=== PATIENT | female | born 1935 | race Caucasian/White ===

== ENCOUNTER 2022-06-08 12:04 | Emergency (ER) | payer MEDICARE ==
[~2022-06-08] VITALS: Ht 154.9 cm; Wt 45.5 kg
[~2022-06-08 12:04] MED LIST: AMLO5TAB16 PO; ASPI-1071 PO; ATOR20TA66 PO; CHLO25TA11 PO; MECL-226 PO; PANT40TA54 PO
[2022-06-08 12:45] LABS: BASOPHILS # (AUTO) 0.1 X10'3 (0-0.2); BASOPHILS % (AUTO) 1.6 % (0-1); EOSINOPHILS # (AUTO) 0.1 X10'3 (0-0.9); HEMATOCRIT 43.7 % (35.0-45.0); HEMOGLOBIN 14.4 g/dl (12.0-16.0); LYMPHOCYTES # (AUTO) 0.9 X10'3 (1.1-4.8); LYMPHOCYTES % (AUTO) 13.4 % (21-51); MEAN CORPUSCULAR HEMOGLOBIN 26.1 PG (27.0-31.0); MEAN CORPUSCULAR VOLUME 79.2 FL (78-98); MEAN PLATELET VOLUME 9.9 FL (7.4-10.4); MONOCYTES # (AUTO) 0.6 X10'3 (0-0.9); MONOCYTES % (AUTO) 8.2 % (2-12); NEUTROPHILS # (AUTO) 5.2 X10'3 (1.8-7.7); NEUTROPHILS % (AUTO) 75.8 % (42-75); PLATELET COUNT 389 X10'3 (140-440); RED BLOOD COUNT 5.52 X10'6 (4.20-5.60); RED CELL DISTRIBUTION WIDTH 15.4 % (11.5-14.5); WHITE BLOOD COUNT 6.8 X10'3 (4.5-11.0)
[2022-06-08 12:58] LABS: APTT 34 SECONDS (22-32)
[2022-06-08 13:02] LABS: ALANINE AMINOTRANSFERASE 29 U/L (12-78); ALBUMIN 4.3 G/DL (3.4-5.0); ALBUMIN/GLOBULIN RATIO 1.3 (1.1-1.5); ALKALINE PHOSPHATASE 149 IU/L (46-116); ANION GAP 8 (8-16); ASPARTATE AMINO TRANSFERASE 34 U/L (10-37); BILIRUBIN,TOTAL 0.6 MG/DL (0.1-1.0); BLOOD UREA NITROGEN 26 MG/DL (7-18); BUN/CREATININE RATIO 33.8 (6.6-38.0); CALCIUM 9.5 MG/DL (8.5-10.1); CHLORIDE 98 MMOL/L (99-107); CREATININE 0.77 MG/DL (0.40-0.90); GLUCOSE 127 MG/DL (70-104); POTASSIUM 3.9 MMOL/L (3.5-5.1); SODIUM 137 MMOL/L (135-145); TOTAL CARBON DIOXIDE 31.2 MMOL/L (24-32); TOTAL PROTEIN 7.6 G/DL (6.4-8.2); eGFR 71 ML/MIN
[2022-06-08] MEDS ORDERED: CHLO25TA10 PO (15:59)
[2022-06-08] MEDS ORDERED: aspirin 81mg tab.chew PO ONE (16:00)
[2022-06-08 16:16] VITALS: BP 168/75
== END 2022-06-08 16:17 | disposition home or self-care (01) ==
LOC: ER 12:05
DX: G45.9 Transient cerebral ischemic attack, unspecified (principal); I10 Essential (primary) hypertension; Z88.5 Allergy status to narcotic agent
CPT/HCPCS: 36415; 70450; 71045; 80053; 84484; 85025; 85610; 85730; 93005; 99285

== ENCOUNTER 2022-09-22 18:19 | Emergency (ER) | payer MEDICARE ==
[~2022-09-22] VITALS: Ht 154.9 cm; Wt 53.6 kg
[~2022-09-22 18:19] MED LIST changes: +CHLO25TA10 PO
[2022-09-22 19:06] LABS: HEMOGLOBIN 13.6 g/dl (12.0-16.0); LYMPHOCYTES # (AUTO) 0.8 X10'3 (1.1-4.8); MEAN CORPUSCULAR HEMOGLOBIN 26.4 PG (27.0-31.0); MONOCYTES # (AUTO) 0.5 X10'3 (0-0.9); WHITE BLOOD COUNT 8.9 X10'3 (4.5-11.0)
[2022-09-22 19:08] LABS: BASOPHILS # (AUTO) 0.1 X10'3 (0-0.2); BASOPHILS % (AUTO) 0.9 % (0-1); EOSINOPHILS # (AUTO) 0.1 X10'3 (0-0.9); EOSINOPHILS % (AUTO) 0.6 % (0-6); HEMATOCRIT 41.2 % (35.0-45.0); LYMPHOCYTES % (AUTO) 8.9 % (21-51); MEAN CORPUSCULAR VOLUME 79.8 FL (78-98); MEAN PLATELET VOLUME 10.1 FL (7.4-10.4); MONOCYTES % (AUTO) 6.1 % (2-12); NEUTROPHILS # (AUTO) 7.4 X10'3 (1.8-7.7); NEUTROPHILS % (AUTO) 83.5 % (42-75); PLATELET COUNT 345 X10'3 (140-440); RED BLOOD COUNT 5.16 X10'6 (4.20-5.60)
[2022-09-22 19:25] LABS: ALANINE AMINOTRANSFERASE 35 U/L (12-78); ALBUMIN 4.3 G/DL (3.4-5.0); ALBUMIN/GLOBULIN RATIO 1.3 (1.1-1.5); ALKALINE PHOSPHATASE 152 IU/L (46-116); ANION GAP 13 (8-16); ASPARTATE AMINO TRANSFERASE 39 U/L (10-37); BILIRUBIN,TOTAL 0.5 MG/DL (0.1-1.0); BLOOD UREA NITROGEN 36 MG/DL (7-18); BUN/CREATININE RATIO 34.3 (6.6-38.0); CALCIUM 9.6 MG/DL (8.5-10.1); CHLORIDE 96 MMOL/L (99-107); CREATININE 1.05 MG/DL (0.40-0.90); GLUCOSE 137 MG/DL (70-104); SODIUM 135 MMOL/L (135-145); TOTAL CARBON DIOXIDE 26.3 MMOL/L (24-32); TOTAL PROTEIN 7.5 G/DL (6.4-8.2); eGFR 50 ML/MIN
[2022-09-22 19:34] LABS: POTASSIUM 3.2 MMOL/L (3.5-5.1)
--- NOTE | 2022-09-22 19:55 | NUR ---
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 However the patient says this feels different and she can't explain it.
[2022-09-22 20:06] LABS: PLATELET ESTIMATE NORMAL; TOTAL CELLS COUNTED 100
[2022-09-22 20:13] LABS: ANISOCYTOSIS 1+; BURR CELLS 1+; MICROCYTOSIS 1+
[2022-09-22 20:14] LABS: LARGE PLATELETS MODERATE; SCHISTOCYTES FEW; TARGET CELLS FEW
--- NOTE | 2022-09-22 21:51 | NUR ---
Patient to CT
--- NOTE | 2022-09-22 21:57 | NUR ---
BACK FROM CT
[2022-09-22] MEDS ORDERED: POTASSIUM BICARB 20meq eff tab 20 MEQ TABLET.EFF PO STA (22:04)
[2022-09-22 22:55] VITALS: BP 141/63
== END 2022-09-23 01:14 | disposition home or self-care (01) ==
LOC: ER 18:19
DX: R42 Dizziness and giddiness (principal); E87.6 Hypokalemia; Z86.73 Personal history of transient ischemic attack (TIA), and cerebral infarction without residual deficits; Z88.5 Allergy status to narcotic agent; W19.XXXA Unspecified fall, initial encounter; Y93.89 Activity, other specified; Y92.89 Other specified places as the place of occurrence of the external cause; Y99.8 Other external cause status
CPT/HCPCS: 36415; 70450; 71045; 72125; 80053; 83880; 84484; 85007; 85025; 93005; 99285

== ENCOUNTER 2023-03-30 13:03 | Inpatient (IN) | payer MEDICARE ==
[~2023-03-30] VITALS: Ht 154.9 cm; Wt 44.0 kg
[2023-03-30 13:28] LABS: BASOPHILS # (AUTO) 0.1 X10'3 (0-0.2); BASOPHILS % (AUTO) 0.8 % (0-1); EOSINOPHILS # (AUTO) 0.1 X10'3 (0-0.9); MEAN PLATELET VOLUME 9.7 FL (7.4-10.4); NEUTROPHILS # (AUTO) 4.1 X10'3 (1.8-7.7); WHITE BLOOD COUNT 6.8 X10'3 (4.5-11.0)
[2023-03-30 13:29] LABS: HEMATOCRIT 39.8 % (35.0-45.0); LYMPHOCYTES # (AUTO) 1.7 X10'3 (1.1-4.8); LYMPHOCYTES % (AUTO) 25.1 % (21-51); MEAN CORPUSCULAR HEMOGLOBIN 24.7 PG (27.0-31.0); MEAN CORPUSCULAR HGB CONC 32.6 g/dL (33.0-36.5); MEAN CORPUSCULAR VOLUME 75.9 FL (78-98); MONOCYTES # (AUTO) 0.8 X10'3 (0-0.9); MONOCYTES % (AUTO) 12.3 % (2-12); NEUTROPHILS % (AUTO) 60.8 % (42-75); PLATELET COUNT 356 X10'3 (140-440); RED BLOOD COUNT 5.24 X10'6 (4.20-5.60); RED CELL DISTRIBUTION WIDTH 17.7 % (11.5-14.5)
[2023-03-30] MEDS ORDERED: aspirin 325mg tablet PO ONE (13:30)
[2023-03-30 13:36] LABS: APTT 35 SECONDS (22-32); PROTHROMBIN TIME 10.9 SECONDS (9.0-12.0)
[2023-03-30 13:38] LABS: ALANINE AMINOTRANSFERASE 22 U/L (12-78); ALBUMIN 3.7 G/DL (3.4-5.0); ALBUMIN/GLOBULIN RATIO 1.2 (1.1-1.5); ALKALINE PHOSPHATASE 145 IU/L (46-116); ANION GAP 9 (8-16); ASPARTATE AMINO TRANSFERASE 21 U/L (10-37); BILIRUBIN,TOTAL 0.5 MG/DL (0.1-1.0); BLOOD UREA NITROGEN 24 MG/DL (7-18); BUN/CREATININE RATIO 27.3 (10.0-20.0); CALCIUM 8.9 MG/DL (8.5-10.1); CHLORIDE 95 MMOL/L (99-107); CREATININE 0.88 MG/DL (0.40-0.90); GLUCOSE 167 MG/DL (70-104); POTASSIUM 3.5 MMOL/L (3.5-5.1); SODIUM 132 MMOL/L (135-145); TOTAL CARBON DIOXIDE 27.9 MMOL/L (24-32); TOTAL PROTEIN 6.9 G/DL (6.4-8.2); eCRCL 31 ML/MIN; eGFR 61 ML/MIN
[2023-03-30 13:45] LABS: PRO BRAIN NATRIURETIC PEPTIDE 578 PG/ML (0-450)
--- NOTE | 2023-03-30 14:03 | NUR ---
HOSPITALIST CALLED 'S CELL REGARDING ADMIT FOR BED 1 @2006
[2023-03-30] MEDS ORDERED: ASPI-611 PO (14:10)
[2023-03-30] MEDS ORDERED: AMLO5TAB PO (14:10)
[2023-03-30] MEDS ORDERED: ATOR20TA PO (14:10)
[2023-03-30] MEDS ORDERED: CHLO25TA10 PO (14:10)
[2023-03-30] MEDS ORDERED: CARV12.549 PO (14:13)
[2023-03-30] MEDS ORDERED: PANT-47 PO (14:14)
[2023-03-30 14:40] LABS: LIPASE 183 U/L (73-393)
[2023-03-30] MEDS ORDERED: mag hydrox/Alum hydrox/simeth 30ml oral suspension PO PRN (15:30)
[2023-03-30] MEDS ORDERED: potassium Cl 20 mEq SR tablet PO PRN (15:30)
[2023-03-30] MEDS ORDERED: magnesium 4gm in 100ml NS 100 ML IV PRN (15:30)
[2023-03-30] MEDS ORDERED: ondansetron/PF 4mg/2ml inj IV PRN (15:30)
[2023-03-30] MEDS ORDERED: acetaminophen 325mg tablet PO PRN (15:30)
[2023-03-30] MEDS ORDERED: normal saline 500ml IV soln 500 ML IV ONE (15:30)
[2023-03-30] MEDS ORDERED: potassium Cl 40MEQ/1/2NS 520ml 520 ML IV PRN (15:30)
[2023-03-30] MEDS ORDERED: iohexol 350MG/ML 100ml bottle IV ONE (15:48)
[2023-03-30 19:20] VITALS: BP 144/69; PULSE 61; RESP 15; TEMP 97.5; O2SAT 94
[2023-03-30] MEDS: K and/or MAG REPLACEMENT MC SCH (20:00)
[2023-03-30] MEDS: docusate sod 100mg capsule PO SCH (20:00)
[2023-03-30 22:00] VITALS: BP 137/66; PULSE 63; RESP 14; TEMP 97.6; O2SAT 98
[2023-03-31 02:00] VITALS: BP 136/64; PULSE 52; RESP 15; TEMP 98.3; O2SAT 97
[2023-03-31 06:29] LABS: BASOPHILS % (AUTO) 0.4 % (0-1); EOSINOPHILS % (AUTO) 0.8 % (0-6); HEMATOCRIT 39.4 % (35.0-45.0); HEMOGLOBIN 12.8 g/dl (12.0-16.0); LYMPHOCYTES # (AUTO) 1.2 X10'3 (1.1-4.8); LYMPHOCYTES % (AUTO) 18.3 % (21-51); MEAN CORPUSCULAR HEMOGLOBIN 24.6 PG (27.0-31.0); MEAN CORPUSCULAR HGB CONC 32.4 g/dL (33.0-36.5); MEAN PLATELET VOLUME 9.5 FL (7.4-10.4); MONOCYTES # (AUTO) 0.8 X10'3 (0-0.9); MONOCYTES % (AUTO) 11.6 % (2-12); NEUTROPHILS # (AUTO) 4.5 X10'3 (1.8-7.7); NEUTROPHILS % (AUTO) 68.9 % (42-75); PLATELET COUNT 342 X10'3 (140-440); RED BLOOD COUNT 5.18 X10'6 (4.20-5.60); RED CELL DISTRIBUTION WIDTH 17.7 % (11.5-14.5); WHITE BLOOD COUNT 6.5 X10'3 (4.5-11.0)
--- NOTE | 2023-03-31 06:40 | NUR ---
Patient in room ORTH[facility] 4015. I have received report from Rebeka RN and had the opportunity to ask questions and assume patient care.
[2023-03-31 06:43] LABS: ALANINE AMINOTRANSFERASE 22 U/L (12-78); ALBUMIN 3.3 G/DL (3.4-5.0); ALBUMIN/GLOBULIN RATIO 1.1 (1.1-1.5); ALKALINE PHOSPHATASE 134 IU/L (46-116); ANION GAP 7 (8-16); ASPARTATE AMINO TRANSFERASE 20 U/L (10-37); BILIRUBIN,TOTAL 0.5 MG/DL (0.1-1.0); BLOOD UREA NITROGEN 19 MG/DL (7-18); BUN/CREATININE RATIO 23.8 (10.0-20.0); CALCIUM 8.4 MG/DL (8.5-10.1); CHLORIDE 95 MMOL/L (99-107); GLUCOSE 93 MG/DL (70-104); MAGNESIUM 1.8 MG/DL (1.5-2.4); SODIUM 132 MMOL/L (135-145); TOTAL CARBON DIOXIDE 30.2 MMOL/L (24-32); TOTAL PROTEIN 6.2 G/DL (6.4-8.2); eCRCL 34 ML/MIN; eGFR 68 ML/MIN
[2023-03-31 06:45] LABS: POTASSIUM 2.8 MMOL/L (3.5-5.1)
[2023-03-31 06:51] VITALS: BP 151/68; PULSE 57; RESP 16; TEMP 97.4; O2SAT 97
[2023-03-31] MEDS ORDERED: pantoprazole 40mg Tablet.DR PO SCH (08:00)
[2023-03-31] MEDS ORDERED: atorvastatin 20mg tablet PO SCH (08:00)
[2023-03-31] MEDS ORDERED: aspirin 81mg tab.chew PO SCH (08:00)
[2023-03-31] MEDS ORDERED: clopidogrel 75mg tablet PO SCH (08:00)
[2023-03-31] MEDS: K and/or MAG REPLACEMENT MC SCH (08:00)
[2023-03-31] MEDS: docusate sod 100mg capsule PO SCH (09:18)
[2023-03-31] MEDS: potassium Cl 20 mEq SR tablet PO PRN ×2 (09:19→15:15)
[2023-03-31 10:00] VITALS: BP 154/75; PULSE 60; RESP 16; TEMP 97.8; O2SAT 98
--- NOTE | 2023-03-31 12:34 | NUR ---
patient able to answer questions but does become confused as conversation progresses. Anxious to go home. Refusing still MRI. DR Gee aware. Report given to michelle BRIDGES
--- NOTE | 2023-03-31 12:35 | NUR ---
Patient in room ORTHO 4015B. I have received report from YULIANA LONG and had the opportunity to ask questions and assume patient care.
[2023-03-31] MEDS ORDERED: POTA-207 PO (16:21)
[2023-03-31] MEDS ORDERED: CLOP75TA34 PO (16:21)
--- NOTE | 2023-03-31 17:40 | NUR ---
PATIENT STABLE AND APPROPRIATE FOR DISCHARGE, IV AND TELE REMOVED, EDUCATION GIVEN, ALL BELONGINGS SENT WITH PATIENT, NEW MEDS E-SCRIPTED TO PREFERRED PHARMACY, PATIENT WALKED WITH FAMILY TO CAR WHERE [id number] WILL TAKE PATIENT HOME
== END 2023-03-31 17:40 | disposition home or self-care (01) | DRG 69 ==
LOC: ER 13:03 → ED HOLD 15:34 → EDBEDREQ 17:45 → ORTHO 4S 18:00
PROVIDERS: ADMIT Family Medicine; ATTEND Family Medicine
PROC: B3251ZZ Computerized Tomography (CT Scan) of Bilateral Common Carotid Arteries using Low Osmolar Contrast (ICD-10-PCS; principal; 2023-03-30)
PROC: B32G1ZZ Computerized Tomography (CT Scan) of Bilateral Vertebral Arteries using Low Osmolar Contrast (ICD-10-PCS; 2023-03-30)
PROC: B32R1ZZ Computerized Tomography (CT Scan) of Intracranial Arteries using Low Osmolar Contrast (ICD-10-PCS; 2023-03-30)
PROC: B3281ZZ Computerized Tomography (CT Scan) of Bilateral Internal Carotid Arteries using Low Osmolar Contrast (ICD-10-PCS; 2023-03-30)
DX: G45.9 Transient cerebral ischemic attack, unspecified (principal); G93.41 Metabolic encephalopathy; Z66 Do not resuscitate; E78.5 Hyperlipidemia, unspecified; E86.0 Dehydration; I10 Essential (primary) hypertension; E87.6 Hypokalemia; K21.9 Gastro-esophageal reflux disease without esophagitis; Z96.651 Presence of right artificial knee joint; Z79.02 Long term (current) use of antithrombotics/antiplatelets; Z86.73 Personal history of transient ischemic attack (TIA), and cerebral infarction without residual deficits; Z88.5 Allergy status to narcotic agent; Z79.899 Other long term (current) drug therapy
CPT/HCPCS: 36415; 70450; 70496; 70498; 71045; 80053; 83690; 83735; 83880; 84132; 84484; 85025; 85610; 85730; 87081; 92508; 92616; 93005; 93306; 93880; 99285; G0378; J3490; J7030; J7040; Q9967

== ENCOUNTER 2023-05-16 17:46 | Inpatient (IN) | payer MEDICARE ==
[~2023-05-16] VITALS: Ht 154.9 cm; Wt 43.8 kg
[~2023-05-16 17:46] MED LIST changes: +AMLO5TAB PO; -AMLO5TAB16 PO; -ASPI-1071 PO; +ASPI-611 PO; +ATOR20TA PO; -ATOR20TA66 PO; +CARV12.549 PO; -CHLO25TA11 PO; +CLOP75TA34 PO; -MECL-226 PO; +PANT-47 PO; -PANT40TA54 PO; +POTA-207 PO
[2023-05-16] MEDS ORDERED: normal saline 1000ml 1,000 ML IV ONE (18:15)
[2023-05-16] MEDS ORDERED: normal saline 1000ML IV soln IVB ONE (18:15)
[2023-05-16] MEDS ORDERED: iohexol 350MG/ML 100ml bottle IV ONE (18:16)
[2023-05-16] MEDS ORDERED: dextrose 5%-lactated ringers 1,000 ML IV SCH (18:20)
[2023-05-16 18:23] LABS: BASOPHILS # (AUTO) 0.1 X10'3 (0-0.2); BASOPHILS % (AUTO) 1.2 % (0-1); EOSINOPHILS # (AUTO) 0.1 X10'3 (0-0.9); HEMOGLOBIN 13.7 g/dl (12.0-16.0); LYMPHOCYTES # (AUTO) 1.7 X10'3 (1.1-4.8); NEUTROPHILS # (AUTO) 4.2 X10'3 (1.8-7.7); RED CELL DISTRIBUTION WIDTH 16.8 % (11.5-14.5); WHITE BLOOD COUNT 7.2 X10'3 (4.5-11.0)
[2023-05-16 18:24] LABS: EOSINOPHILS % (AUTO) 1.5 % (0-6); HEMATOCRIT 41.5 % (35.0-45.0); LYMPHOCYTES % (AUTO) 24.1 % (21-51); MEAN CORPUSCULAR HEMOGLOBIN 25.5 PG (27.0-31.0); MEAN CORPUSCULAR VOLUME 77.4 FL (78-98); MEAN PLATELET VOLUME 9.1 FL (7.4-10.4); MONOCYTES % (AUTO) 14.4 % (2-12); NEUTROPHILS % (AUTO) 58.8 % (42-75); PLATELET COUNT 387 X10'3 (140-440); RED BLOOD COUNT 5.36 X10'6 (4.20-5.60)
[2023-05-16 18:40] LABS: ALANINE AMINOTRANSFERASE 27 U/L (12-78); ALBUMIN 4.2 G/DL (3.4-5.0); ALBUMIN/GLOBULIN RATIO 1.3 (1.1-1.5); ALKALINE PHOSPHATASE 126 IU/L (46-116); ANION GAP 9 (8-16); ASPARTATE AMINO TRANSFERASE 25 U/L (10-37); BILIRUBIN,TOTAL 0.4 MG/DL (0.1-1.0); BLOOD UREA NITROGEN 31 MG/DL (7-18); BUN/CREATININE RATIO 32.3 (10.0-20.0); CALCIUM 9.3 MG/DL (8.5-10.1); CHLORIDE 97 MMOL/L (99-107); CREATININE 0.96 MG/DL (0.40-0.90); GLUCOSE 98 MG/DL (70-104); POTASSIUM 3.5 MMOL/L (3.5-5.1); SODIUM 132 MMOL/L (135-145); TOTAL CARBON DIOXIDE 26.4 MMOL/L (24-32); TOTAL PROTEIN 7.4 G/DL (6.4-8.2); eCRCL 29 ML/MIN; eGFR 55 ML/MIN
[2023-05-16 18:47] LABS: PRO BRAIN NATRIURETIC PEPTIDE 376 PG/ML (0-450)
[2023-05-16 19:10] LABS: LARGE PLATELETS FEW; PLATELET ESTIMATE NORMAL
[2023-05-16 19:11] LABS: ANISOCYTOSIS 1+; MICROCYTOSIS 1+
[2023-05-16 19:12] LABS: ELLIPTOCYTES 1+; TARGET CELLS FEW
[2023-05-16 19:13] LABS: POIKILOCYTOSIS FEW
[2023-05-16 19:21] LABS: APTT 32 SECONDS (22-32); INR 1.1 INR; PROTHROMBIN TIME 11.4 SECONDS (9.0-12.0)
[2023-05-16] MEDS ORDERED: acetaminophen 650mg rectal suppository RC PRN (20:10)
[2023-05-16] MEDS ORDERED: potassium Cl 40MEQ/1/2NS 520ml 520 ML IV PRN (20:10)
[2023-05-16] MEDS ORDERED: ondansetron/PF 4mg/2ml inj IV PRN (20:10)
[2023-05-16] MEDS ORDERED: magnesium 2GM in 50ml NS 50 ML IV PRN (20:10)
[2023-05-16] MEDS ORDERED: magnesium Cl slow-release 64mg tablet PO PRN (20:10)
[2023-05-16] MEDS ORDERED: normal saline 1000ml 1,000 ML IV SCH (20:10)
[2023-05-16] MEDS ORDERED: magnesium 4gm in 100ml NS 100 ML IV PRN (20:10)
[2023-05-16] MEDS ORDERED: PERFLUTREN PROTEIN-A MICROSPHR (Optison) 0.22 MG/ML 3ML VIAL IV ONE (20:10)
[2023-05-16] MEDS ORDERED: potassium Cl 20 mEq SR tablet PO PRN ×2 (20:10)
[2023-05-16 20:42] LABS: BILIRUBIN,URINE NEGATIVE (Neg); CLARITY,URINE CLEAR (Clear); GLUCOSE, URINE NEGATIVE (Neg); KETONES,URINE NEGATIVE (Neg); LEUKOCYTE ESTERASE ,URINE NEGATIVE (Neg); NITRITES, URINE NEGATIVE (Neg); OCCULT BLOOD,URINE TRACE-INTACT (Neg); PH,URINE 6.5 (4.8-8.0); PROTEIN,URINE NEGATIVE (Neg); UROBILINOGEN,URINE 0.2 E.U/dL (0.2-1.0)
[2023-05-16 20:44] LABS: COLOR,URINE STRAW (Yellow); UA COLLECTION TYPE CLN CATCH MIDSTREAM
[2023-05-16 20:53] LABS: BACTERIA,URINE FEW /HPF (Neg); MUCUS STRANDS NONE SEEN /LPF (Neg); RBC,URINE 0-2 /HPF (0-2); SQUAMOUS EPITHELIAL CELL,UR FEW /LPF (FEW); WBC,URINE 0-4 /HPF (0-4)
--- NOTE | 2023-05-16 21:23 | NUR ---
PT POOR HISTORIAN, UNABLE TO COMPLETE MED REC.
--- NOTE | 2023-05-16 21:43 | NUR ---
PT REFUSING PLANNED MRI, MD ACOSTA AWARE.
[2023-05-16] MEDS ORDERED: clopidogrel 75mg tablet PO ONE (22:55)
[2023-05-17 05:37] LABS: MEAN CORPUSCULAR HGB CONC 33.1 g/dL (33.0-36.5)
[2023-05-17 05:39] LABS: ALBUMIN 3.5 G/DL (3.4-5.0); ANION GAP 7 (8-16); BASOPHILS # (AUTO) 0.1 X10'3 (0-0.2); BASOPHILS % (AUTO) 0.9 % (0-1); BLOOD UREA NITROGEN 21 MG/DL (7-18); BUN/CREATININE RATIO 27.3 (10.0-20.0); CALCIUM 8.9 MG/DL (8.5-10.1); CHLORIDE 99 MMOL/L (99-107); CREATININE 0.77 MG/DL (0.40-0.90); EOSINOPHILS # (AUTO) 0.1 X10'3 (0-0.9); EOSINOPHILS % (AUTO) 0.9 % (0-6); GLUCOSE 90 MG/DL (70-104); HEMATOCRIT 39.3 % (35.0-45.0); LYMPHOCYTES # (AUTO) 1.1 X10'3 (1.1-4.8); LYMPHOCYTES % (AUTO) 17.4 % (21-51); MEAN CORPUSCULAR HEMOGLOBIN 25.4 PG (27.0-31.0); MEAN CORPUSCULAR VOLUME 76.8 FL (78-98); MEAN PLATELET VOLUME 9.3 FL (7.4-10.4); MONOCYTES # (AUTO) 0.9 X10'3 (0-0.9); MONOCYTES % (AUTO) 14.5 % (2-12); NEUTROPHILS # (AUTO) 4.3 X10'3 (1.8-7.7); NEUTROPHILS % (AUTO) 66.3 % (42-75); PLATELET COUNT 320 X10'3 (140-440); RED BLOOD COUNT 5.12 X10'6 (4.20-5.60); RED CELL DISTRIBUTION WIDTH 16.9 % (11.5-14.5); SODIUM 133 MMOL/L (135-145); WHITE BLOOD COUNT 6.5 X10'3 (4.5-11.0); eCRCL 36 ML/MIN; eGFR 71 ML/MIN
[2023-05-17 05:41] LABS: POTASSIUM 3.1 MMOL/L (3.5-5.1)
[2023-05-17 07:20] VITALS: BP 143/74; PULSE 60; RESP 18; O2SAT 98
[2023-05-17] MEDS ORDERED: K and/or MAG REPLACEMENT MC SCH (08:00)
--- NOTE | 2023-05-17 09:08 | NUR ---
pt on hospital bed. Resting comfortably in bed. Pt passed swallow screen, cl liq diet started per hospitalist.
[2023-05-17] MEDS ORDERED: aspirin 81mg, enteric-coated 1 TAB TABLET.DR PO ONE (09:20)
[2023-05-17] MEDS ORDERED: clopidogrel 75mg tablet PO ONE (09:20)
[2023-05-17] MEDS ORDERED: atorvastatin 20mg tablet PO ONE (09:25)
--- NOTE | 2023-05-17 11:12 | NUR ---
Pt still refusing MRI after being offered ativan for anxiety and vertigo meds. Pt states she had 1 MRI in the past and experienced vertigo and anxiety.
[2023-05-17 11:14] LABS: CHOL/HDL RATIO 2.4 (0.00-4.99); CHOLESTEROL 145 MG/DL (0-200); HDL CHOLESTEROL 61 MG/DL (35-60); LDL CHOLESTEROL 71 MG/DL (50-100); TRIGLYCERIDES 55 MG/DL (20-135)
--- NOTE | 2023-05-17 12:15 | NUR ---
In to assess patient having some word searching issues but is anxious about MRI and wanting to go home. Ambulated entire [place] of ED with out difficulty just standby assist. Patients speech became more fluent once she was told she did not have to have the MRI and would be discharged.She states she has been having word finding issues over the last 8 months or so. Speech was clear and fluent after education given about going home and medications for home.
--- NOTE | 2023-05-17 13:52 | NUR ---
This RN has attempted to call son, Magdi x3 and left voicemails x2.
[2023-05-18] MEDS ORDERED: clopidogrel 75mg tablet PO SCH (08:00)
[2023-05-18] MEDS ORDERED: aspirin 81mg, enteric-coated 1 TAB TABLET.DR PO SCH (08:00)
[2023-05-18] MEDS ORDERED: pantoprazole 40mg Tablet.DR PO SCH (08:00)
== END 2023-05-17 16:13 | disposition home or self-care (01) | DRG 64 ==
LOC: ER 17:52 → UNDOADMIN 20:13 → ED HOLD 20:13 → EDBEDREQTM 05-17 11:36 → EDBEDREQDT 05-17 11:36 → EDBEDREQSVC 05-17 11:36
PROVIDERS: ADMIT Family Medicine; ATTEND Family Medicine
DX: I63.9 Cerebral infarction, unspecified (principal); G93.41 Metabolic encephalopathy; N17.0 Acute kidney failure with tubular necrosis; G45.9 Transient cerebral ischemic attack, unspecified; I69.354 Hemiplegia and hemiparesis following cerebral infarction affecting left non-dominant side; R47.01 Aphasia; I10 Essential (primary) hypertension; K21.9 Gastro-esophageal reflux disease without esophagitis; E78.5 Hyperlipidemia, unspecified; E87.6 Hypokalemia; Z66 Do not resuscitate; Z79.82 Long term (current) use of aspirin; Z79.899 Other long term (current) drug therapy; Z79.01 Long term (current) use of anticoagulants; Z88.5 Allergy status to narcotic agent
CPT/HCPCS: 36415; 70450; 70496; 70498; 80048; 80053; 80061; 81001; 82948; 83735; 83880; 84484; 85025; 85610; 85730; 93005; 99285; G0378; J3490; J7030; J7121; Q9967

== ENCOUNTER 2023-06-18 14:14 | Outpatient (CLI) | payer MEDICARE | END 2023-06-18 23:59 | disposition home or self-care (01) | LOC: RAD 14:14 | PROVIDERS: ATTEND Registered Nurse | DX: K76.89 Other specified diseases of liver (principal); R10.13 Epigastric pain; K59.00 Constipation, unspecified | CPT/HCPCS: 76700 ==

== ENCOUNTER 2025-04-08 11:36 | Emergency (ER) | payer MEDICARE, MEDICAID ==
[~2025-04-08] VITALS: Ht 157.5 cm; Wt 46.0 kg
[2025-04-08 12:04] VITALS: TEMP 97.8
[2025-04-08 12:55] VITALS: BP_DIAS 78
--- NOTE | 2025-04-08 14:13 | Physician Documentation ---
History of Present Illness ~ Chief Complaint: Neck pain Stated Complaint: THROAT SWELLING Time Seen by MD: 13:40 Mode of Arrival: POV, Ambulatory HPI 89-year-old female with a history of dementia presents with her friend for bilateral neck pain and swelling this morning. She says sometimes it is tender to palpation of both sides of her neck. She is able to drink water but she did not have breakfast this morning as she was worried it may hurt to swallow. She denies any injury or trauma to her neck. She mentioned a couple of weeks ago that she had this pain which resolved spontaneously. Airway patent, speaking in full sentences. Medication Reconciliation Allergies: Coded Allergies: Opioids - Morphine Analogues (Verified Allergy, Unknown, 06/08/22) Scheduled Amlodipine Besylate (Amlodipine Besylate), 1 TABLET PO DAILY, (Reported) Aspirin (Aspir 81), 1 TAB PO DAILY, (Reported) Atorvastatin Calcium (Lipitor), 1 TAB PO DAILY, (Reported) Carvedilol (Carvedilol), 1 TAB PO BID, (Reported) Chlorthalidone (Chlorthalidone), 1 TAB PO DAILY, (Reported) Clopidogrel Bisulfate (Clopidogrel), 75 MG PO DAILY Pantoprazole Sodium (PROTONIX tablet), 1 TAB PO DAILY, (Reported) Potassium Chloride* (K-Dur*), 2 TAB PO DAILY Past Medical History Past Medical History: CVA/TIA/Stroke, Vertigo, Hypertension Past Surgical History: noncontributory Patient History: Patient reports no known family medical history. Alcohol Use: None Drug Use: none Lives with: Family Lives In: Home Review of Systems All Other Systems at this time: Reviewed and Negative Physical Exam Vital Signs: RN Vital Signs have been reviewed: Yes, Temperature: 97.8, Source: Temporal, Heart Rate: 69, Respiratory Rate: 16, BP: 172/78, Pulse Oximetry: 96, Weight: 46.000 Oxygen Flow Rate: 0 Pulse Oximetry Reflects: adequate oxygenation Physical Exam General: Alert, no apparent distress. HEENT: PERRL, EOMI, no injection, moist mucous membranes. Bilateral TM clear. Posterior pharynx clear. Neck: Full range of motion. Tenderness to palpation along area of bilateral cervical lymph nodes, lymph nodes are nonpalpable. Respiratory: Lungs clear, no respiratory distress. Chest: No accessory muscle use. Cardiovascular: Regular rate and rhythm, no murmurs. Gastrointestinal: Soft, nontender, nondistended. Bowels sounds present. Extremities: Normal range of motion, no deformity. Neurologic: Oriented x4. Psychiatric: Normal mood and affect. Skin: Normal color, warm and dry. No edema, no ecchymosis. Progress Results/Orders Reviewed/noted all lab results: Yes Results/Orders Orders - DONNA STYLES Ct Neck Soft Tissues (04/08/25 14:11) Completed Orders - DONNA STYLESP Ondansetron Disint. Tablet (Zofran Odt T (04/08/25 14:15) Ct Neck Soft Tissues (04/08/25 14:11) Medications Received in ER Medications (Trade) Dose Ordered Sig/Deepti Route PRN Reason Start Time Stop Time Status Last Admin Dose Admin (Zofran ODT tablet) 4 mg ONCE ONCE PO 04/08/25 14:15 04/08/25 14:16 DC 04/08/25 14:16 4 MG Vital Signs 04/08/25 04/08/25 04/08/25 04/08/25 12:04 12:55 12:56 14:17 Temp 97.8 Pulse 70 69 65 Resp 16 16 16 16 B/P (MAP) 166/98 172/78 (109) 90/ Pulse Ox 98 96 99 O2 Flow Rate 0 0 0 EKG/XRAY/CT/US/VASC/MRI CT : Impression CT neck soft tissues as interpreted by me: Thyroid gland within normal limits, moderate to severe degenerative changes of the cervical spine, circumferential wall thickening of the proximal esophagus. Medical Decision Making Additional info obtained from: old records, family, sports teacher Findings 89-year-old female with bottle Tylenol neck pain that was worse this morning. She has mentioned it a few times over the past few weeks which normally self resolves. She denies any recent illness or upper respiratory infection. She has not taken any medication for her symptoms prior to arrival. She was able to drink water well in front of me. Her physical exam revealed tenderness to palpation along wear her cervical lymph nodes would be but the lymph nodes themselves were nonpalpable. She originally did not want to lay flat for CT scan or neck ultrasound. She states that she has a history of vertigo and when she lays down it gets much worse and she gets very nauseous. I gave her a dose of Zofran and then she was agreeable to complete the CT scan. CT scan shows: Wall thickening of the proximal esophagus concerning for neoplasm. I spoke with her and her friend regarding this as they can follow up on outpatient basis for further imaging and treatment plan. I discussed that she can use Tylenol or ibuprofen for pain relief. Her daughter is coming to pick her up and I will explain all of this to her daughter as well. We discussed follow up and return instructions. Departure Disposition: 01 HOME / SELF CARE / HOMELESS Impression: Primary Impression: Neck pain Condition: Stable Discharge Instructions: General Discharge Instructions Additional Instructions: Please follow up with her primary care provider within the next week. Return back here for any new or worsening symptoms. Your CT scan shows: Wall thickening of the proximal esophagus concerning for neoplasm. I have provided you a copy of your results to give to your primary care provider. This will need further workup through your primary care provider such as additional imaging and a possible referral to Oncology. You can use Tylenol and/or ib uprofen for pain relief at home. Referrals: NO PRIMARY CARE PROVIDER (PCP) Education Educated: Patient, Family Educated regarding: diagnosis, treatment, prognosis, need for follow up Additional Comment Medical Screen Exam This patient recieved a medical screening examination. After reviewing the individual's medical complaints with presenting symptoms and performing an appropriate physical examination, it was determined that no immediate life- threatening emergency medical condition is present. This individual is also not a women having contractions. Signature Scribe Signature: . Attestation: Scribed for Donna Stylesp by Donna Kaminski NP . 04/08/25 16:21 Parts of this note were created using 2can voice recognition software program. While efforts were made to correct any mistakes made by this voice recognition software program, nonsensical phrases may remain in this note. In addition, there may be errors and syntax, grammar, content and spelling. DONNA STYLES Apr 08, 2025 14:13
[2025-04-08] MEDS: ondansetron 4mg rapidly disintigrating tab PO ONE (14:16)
[2025-04-08 14:17] VITALS: BP_SYST 90; PULSE 65; RESP 16; O2SAT 99
--- NOTE | 2025-04-08 16:02 | RADIOLOGY REPORT ---
_ Procedure: [facility] Study Date and Requested Time: 2024 03:13 PM History: bilateral neck pain, painful swallowing Comparison: CT CTA NECK/HEAD on DOS: 05/16/23, CT CERVICAL SPINE on DOS: 09/22/22, CT HEAD on DOS: 3 Dose: CTDI: 54.49 mGy DLP: 1164.63 mGycm Technique: Multiplanar images obtained through the neck without contrast Findings: 1.1 x 1.5 cm symmetric anterior and right lateral proximal esophageal wall thickening at the level of the thyroids with more inferior circumferential esophageal wall thickening . There is mild mass effe ct on the posterior trachea over the lower neck. Nasopharynx, oropharynx, hypopharynx, and larynx normal in caliber without evidence of focal mass. Pa rotid, submandibular, and sublingual glands within normal limits. Tongue within normal limits. Cervical soft tissues within normal limits with no evidence of significant cervical lymphadenopathy. [id number] atherosclerotic calcification of bilateral carotid bulbs. Thyroid gland within normal limits. No evidence of superior mediastinal lymphadenopathy. Bilateral lens replacement. Otherwise orbits and globes unremarkable. Mild mucoperiosteal thickening of the ethmoid air cells. The remainder of the paranasal sinuses and mastoids are clear. Moderate t o severe degenerative changes of the cervical spine. No evidence of acute osseous abnormalities. 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 Impression: Limited noncontrast imaging. Wall thickening of the proximal esophagus concerning for neoplasm.
[2025-04-09] MEDS ORDERED: HYDR-3965 PO (16:17)
== END 2025-04-08 16:44 | disposition home or self-care (01) ==
LOC: ER 11:36
DX: M54.2 Cervicalgia (principal); I10 Essential (primary) hypertension; Z86.73 Personal history of transient ischemic attack (TIA), and cerebral infarction without residual deficits; Z88.5 Allergy status to narcotic agent
CPT/HCPCS: 70490; 99284

== ENCOUNTER 2025-04-09 11:50 | Emergency (ER) | payer MEDICARE, MEDICAID ==
[~2025-04-09] VITALS: Ht 154.9 cm; Wt 46.1 kg
--- NOTE | 2025-04-09 13:09 | Physician Documentation ---
History of Present Illness ~ Chief Complaint: Neck pain Stated Complaint: NECK PAIN Time Seen by MD: 12:32 OK to notify your PCP?: Yes Primary Medical Doctor: none Source: patient, family Mode of Arrival: POV Exam Limitations: no limitations HPI Chief Complaint: Pain Caveat: Dementia Independent Historians: Caregiver/friend History of Present Illness: Patient is a an 89-year-old woman who comes in complaining of pain in the neck that began several days ago. Patient was seen here for same. Pain is located in the bilateral posterior submandibular neck. Patient denies a sore throat. Patient denies difficulty swallowing or pain with swallowing. Patient denies any fever. Patient denies any dysuria urgency or frequency. Patient denies any acute abdominal pain. Review of systems: All systems were reviewed and are negative except for what is indicated in the history of present illness. Past Medical History: Dementia, HTN Past Surgical History: Noncontributory Social History: Patient lives alone but is cared for by a caregiver that comes in to check in on her and other friends, no tobacco use or alcohol use Medications: Reviewed as documented Nursing Notes Allergies: Reviewed as documented in Nursing Notes Medication Reconciliation Allergies: Coded Allergies: No Known Allergies (Unverified , 04/09/25) Scheduled Amlodipine Besylate (Amlodipine Besylate), 1 TABLET PO DAILY, (Reported) Aspirin (Aspir 81), 1 TAB PO DAILY, (Reported) Atorvastatin Calcium (Lipitor), 1 TAB PO DAILY, (Reported) Carvedilol (Carvedilol), 1 TAB PO BID, (Reported) Chlorthalidone (Chlorthalidone), 1 TAB PO DAILY, (Reported) Clopidogrel Bisulfate (Clopidogrel), 75 MG PO DAILY Pantoprazole Sodium (PROTONIX tablet), 1 TAB PO DAILY, (Reported) Potassium Chloride* (K-Dur*), 2 TAB PO DAILY Scheduled PRN Hydrocodone Bit/Acetaminophen 5/325 MG ([place] 5/325 MG), 1 TAB PO TID PRN PRN for severe pain (7-10) Past Medical History Past Medical History: CVA/TIA/Stroke, Vertigo, Hypertension Past Surgical History: noncontributory Patient History: Patient reports no known family medical history. Alcohol Use: None Drug Use: none Lives with: Family Lives In: Home Review of Systems Unable to obtain complete ROS: dementia Physical Exam Vital Signs: RN Vital Signs have been reviewed: Yes, Temperature: 97.6, Source: Temporal, Heart Rate: 71, Respiratory Rate: 20, BP: 175/85, Pulse Oximetry: 100, Weight: 46.100 Oxygen Flow Rate: 0 Pulse Oximetry Reflects: adequate oxygenation Physical Exam General Appearance: No distress HEENT: Normal OP, moist oral mucosa, PERRL, EOMI Neck: supple, normal ROM, trachea midline, tenderness behind the angle of the jaw bilaterally. No lymphadenopathy. No swelling. Pulmonary: No respiratory distress, CTA, BS equal Cardiac: RRR, no murmur, rub or gallop, GI: nondistended, soft, nontender, normal bowel sounds, no guarding, no rebound Extremities: normal ROM, no swelling, non-tender Skin: intact, dry, warm, no rashes Neuro: AAOx3, speech is clear, no focal motor weakness Psych: normal affect, good eye contact, no apparent hallucination, normal speech Progress Results/Orders Results/Orders Orders - JOVAN PORRAS MD Ct Neck Soft Tissues (04/09/25 15:08) Urinalysis, Cult If Indicated (04/09/25 16:20) Completed Orders - JOVAN PORRAS MD Cbc/Diff (04/09/25 13:09) Ondansetron Inj. (Zofran 4mg/2ml Vial) (04/09/25 13:10) CMP (04/09/25 13:09) Ct Neck Soft Tissues (04/09/25 15:08) Iohexol 300mg/Ml 100ml Inj. (Omnipaque-3 (04/09/25 14:22) Normal Saline 1000ml (0.9% Sodium Chlori (04/09/25 16:20) Medications Received in ER Medications (Trade) Dose Ordered Sig/Deepti Route PRN Reason Start Time Stop Time Status Last Admin Dose Admin (Zofran 4mg/2ml vial) 4 mg ONCE ONCE IV 04/09/25 13:10 04/09/25 13:24 DC 04/09/25 14:39 4 MG Vital Signs 04/09/25 04/09/25 11:51 17:12 Temp 97.6 Pulse 71 75 Resp 20 15 B/P (MAP) 175/85 150/132 Pulse Ox 100 99 O2 Flow Rate 0 Laboratory Tests Test 04/09/25 13:31 White Blood Count 12.7 H Red Blood Count 6.09 H Hemoglobin 12.2 Hematocrit 38.6 Mean Corpuscular Volume 63.3 L Mean Corpuscular Hemoglobin 19.9 L Mean Corpuscular Hemoglobin Concent 31.5 L Red Cell Distribution Width 18.9 H Platelet Count 294 Mean Platelet Volume 9.6 Neutrophils (%) (Auto) 75.5 H Lymphocytes (%) (Auto) 11.8 L Monocytes (%) (Auto) 11.8 Eosinophils (%) (Auto) 0.5 Basophils (%) (Auto) 0.4 Neutrophils # (Auto) 9.6 H Lymphocytes # (Auto) 1.5 Monocytes # (Auto) 1.5 H Eosinophils # (Auto) 0.1 Basophils # (Auto) 0.0 CBC Comment Platelet Estimate Normal Red Blood Cell Morphology Perf Hypochromasia 2+ Basophilic Stippling Anisocytosis 2+ Microcytosis 2+ Tear Drop Cells Few Elliptocytes 1+ Schistocytes Few Sodium Level 131 L Potassium Level 5.1 Chloride Level 96 L Carbon Dioxide Level 28.4 Anion Gap 7 L Blood Urea Nitrogen 24 H Creatinine 1.01 H Estimated GFR/1.73 m2 52 BUN/Creatinine Ratio 23.8 H Glucose Level 101 Calcium Level 8.7 Total Bilirubin 0.5 Aspartate Amino Transf (AST/SGOT) 21 Alanine Aminotransferase (ALT/SGPT) 17 Alkaline Phosphatase 98 Total Protein 6.7 Albumin 3.3 L Globulin 3.4 Albumin/Globulin Ratio 1.0 L Chemistry Comments Medical Decision Making Findings Differential diagnosis includes but is not limited to: Neoplasm, pharyngitis, infection, lymphadenopathy CT neck soft tissues with IV contrast, indication: Neck pain and prior CT without contrast showing small thickened esophagus Impression: 1. No evidence of cervical mass lesion, pathologically enlarged lymph nodes or fluid collection. 2. The previously described esophageal wall thickening is not clearly demonstrated on today's examination. Consider correlation with esophagram. Laboratory data independent interpretation: CBC: Leukocytosis 12.7 CMP: Unremarkable, sodium 131, BUN 24, creatinine 1.01 Urinalysis: Emergency department course/medical decision-making: Patient presents with ongoing pain. She had a CT scan yesterday of the neck without IV contrast showing proximal esophageal thickening concerning for neoplasm. CT of the neck is repeated with IV contrast however findings of esophageal thickening were not observed. Patient is going to require outpatient esophagram to further assess. The cause of her pain is unclear. Patient is instructed to follow up with your primary care doctor this week. Patient will be given a small prescription for [place]. However the patient appears comfortab le here. Patient does have a mild leukocytosis of 12.7 however we were able to obtain a urine from the patient. Patient is instructed to return if she develops a fever or any other symptoms. I do not suspect infection is the cause for her pain. Test results, treatment plan and need for follow up were discussed with the patient and family. Patient is stable for discharge. Departure Time of Disposition: 16:16 Disposition: 01 HOME / SELF CARE / HOMELESS Impression: Primary Impression: Neck pain Condition: Stable Discharge Instructions: Medical Screening Exam Additional Instructions: FOLLOW UP WITH YOUR PRIMARY CARE DOCTOR THIS WEEK FOR REFERRAL FOR OUTPATIENT A SONOGRAM TO EVALUATE YOUR CT FINDINGS OF PROXIMAL THICKENED ESOPHAGUS. USE THE PAIN MEDICATION PRESCRIBED CAUTIOUSLY THIS MAY CAUSE DIZZINESS, LIGHTHEADEDNESS AND MAY CAUSE UNBALANCED WALKING AND POTENTIAL FOR FALLING Prescriptions Hydrocodone Bit/Acetaminophen 5/325 MG ([place] 5/325 MG) 5 Mg/325 Mg Tablet 1 TAB PO TID PRN PRN for severe pain (7-10) for 5 Days, #15 TAB Prov: JOVAN PORRAS MD 04/09/25 Education Educated: Patient, Family Educated regarding: diagnosis, treatment, need for follow up Signature Scribe Signature: No scribe Attestation: No scribe JOVAN PORRAS MD Apr 09, 2025 13:09
[2025-04-09 13:46] LABS: MEAN PLATELET VOLUME 9.6 FL (7.4-10.4); RED CELL DISTRIBUTION WIDTH 18.9 % (11.5-14.5)
[2025-04-09 13:56] LABS: CREATININE 1.01 MG/DL (0.40-0.90); TOTAL CARBON DIOXIDE 28.4 MMOL/L (24-32); eCRCL 27 ML/MIN; eGFR 52 ML/MIN
[2025-04-09] MEDS ORDERED: iohexol 300mg/ml 100ml inj. ONE (14:22)
[2025-04-09 14:33] LABS: PLATELET ESTIMATE NORMAL
[2025-04-09 14:35] LABS: ELLIPTOCYTES 1+
[2025-04-09] MEDS: ondansetron/PF 4mg/2ml inj IV ONE (14:39)
--- NOTE | 2025-04-09 15:27 | RADIOLOGY REPORT ---
EXAM: CT CT NECK SOFT TISSUES W/ IV CONTRAST INDICATION: neck pain, esophageal thickening Exam Date: 04/09/2025 02:52 PM COMPARISON: CT CT NECK SOFT TISSUES on DOS: 04/08/25, CT CTA NECK/HEAD on DOS: 05/16/23 TECHNIQUE: CT of the neck with intravenous contrast. RADIATION DOSE: CTDIvol: 15.3 mGy, DLP: 420 mGy*cm CONTRAST: Type of contrast: Omni 300 Contrast injected: 100 ml FINDINGS: There is no evidence of cervical mass lesion, pathologically enlarged lymph nodes or fluid collection . The fat planes of the neck appear intact. The airway and larynx are unremarkable. The parotid, submandibular and thyroid glands are unremarkable. The vascular structures of the neck appear patent. The visualized lung apices are clear. The limited visualized portions of the brain are unremarkable. The osseous structures are unremarkable. IMPRESSION: 1. No evidence of cervical mass lesion, pathologically enlarged lymph nodes or fluid collection. 2. The previously described esophageal wall thickening is not clearly demonstrated on today's examina tion. Consider correlation with esophagram.
[2025-04-09] MEDS ORDERED: HYDR-3965 PO (16:17)
[2025-04-09] MEDS ORDERED: normal saline 1000ML IV soln IVB ONE (16:20)
[2025-04-09 17:12] VITALS: BP 150/132; PULSE 75; RESP 15; O2SAT 99
== END 2025-04-09 17:15 | disposition home or self-care (01) ==
LOC: ER 11:50
DX: M54.2 Cervicalgia (principal); I10 Essential (primary) hypertension; F03.90 Unspecified dementia, unspecified severity, without behavioral disturbance, psychotic disturbance, mood disturbance, and anxiety; Z86.73 Personal history of transient ischemic attack (TIA), and cerebral infarction without residual deficits
CPT/HCPCS: 36415; 70491; 80053; 85025; 96374; 99285; J2405; J7040; Q9967; 85008

== ENCOUNTER 2025-04-11 10:06 | Emergency (ER) | payer MEDICARE, MEDICAID ==
[~2025-04-11] VITALS: Ht 157.5 cm; Wt 48.6 kg
[~2025-04-11 10:06] MED LIST changes: +HYDR-3965 PO
--- NOTE | 2025-04-11 10:30 | Physician Documentation ---
History of Present Illness ~ Chief Complaint: Mechanical Fall Stated Complaint: GROUND LEVEL FALL Time Seen by MD: 10:29 Primary Medical Doctor: none HPI 89-year-old female, presenting with a fall History is obtained from the patient and a volunteer at the [facility]. They state that she had a fall at home, but then was transferred to the [facility] for the day. They felt like she needed evaluation. Here in the ED, the patient tells me that she feels fine. She denies pain anywhere. She denies headache although she does have a bump on the right side of her head. She denies any neck pain. She denies any extremity injury. No chest pain, shortness of breath. No abdominal pain, nausea vomiting or diarrhea. Tetanus within 5 Years?: Yes Medication Reconciliation Allergies: Coded Allergies: No Known Allergies (Unverified , 04/09/25) Scheduled Amlodipine Besylate (Amlodipine Besylate), 1 TABLET PO DAILY, (Reported) Aspirin (Aspir 81), 1 TAB PO DAILY, (Reported) Atorvastatin Calcium (Lipitor), 1 TAB PO DAILY, (Reported) Carvedilol (Carvedilol), 1 TAB PO BID, (Reported) Chlorthalidone (Chlorthalidone), 1 TAB PO DAILY, (Reported) Clopidogrel Bisulfate (Clopidogrel), 75 MG PO DAILY Pantoprazole Sodium (PROTONIX tablet), 1 TAB PO DAILY, (Reported) Potassium Chloride* (K-Dur*), 2 TAB PO DAILY Scheduled PRN Hydrocodone Bit/Acetaminophen 5/325 MG (Fanshawe 5/325 MG), 1 TAB PO TID PRN PRN for severe pain (7-10) Past Medical History Past Medical History: CVA/TIA/Stroke, Vertigo, Hypertension Past Surgical History: noncontributory Patient History: Patient reports no known family medical history. Alcohol Use: None Drug Use: none Lives with: Family Lives In: Home Review of Systems Constitutional: Denies: fever Cardiovascular: Denies: chest pain Gastrointestinal: Denies: abdominal pain Neurological: Denies: headache Physical Exam Vital Signs: Temperature: 98.0, Source: Oral, Heart Rate: 63, Respiratory Rate: 17, BP: 157/71, Pulse Oximetry: 98, Weight: 48.600 Physical Exam General:This is a thin chronically ill-appearing elderly woman, not in distress, friend at bedside HEENT: The patient does have a small hematoma to the right side of her scalp, otherwise no lacerations. Pupils are equal Heart: Regular rate and rhythm, normal-appearing peripheral perfusion Lungs: Clear breath sounds bilateral, normal work of breathing, normal oxygen saturation on room air Abdomen: Soft, nondistended, nontender all quadrants Extremities: Warm and well-perfused, no significant traumatic findings Neuro: Alert and oriented to self and location, has trouble with history questions Psychiatric: Calm and cooperative with exam Progress Results/Orders Results/Orders Orders - TRAVIS MORENO MD Ct Head (04/11/25 10:35) Hand, Complete (3vw Min) (04/11/25 10:46) Completed Orders - TRAVIS MORENO MD Ct Head (04/11/25 10:35) Hand, Complete (3vw Min) (04/11/25 10:46) Vital Signs 04/11/25 04/11/25 04/11/25 04/11/25 10:19 10:26 11:00 12:00 Temp 98.0 Pulse 63 71 74 Resp 17 16 16 15 B/P (MAP) 157/71 152/72 (98) 147/71 (96) Pulse Ox 98 98 96 O2 Flow Rate 0 0 04/11/25 04/11/25 13:00 13:48 Temp 98.6 Pulse 69 82 Resp 16 16 B/P (MAP) 131/78 (95) 134/79 Pulse Ox 98 98 O2 Flow Rate 0 EKG/XRAY/CT/US/VASC/MRI Bone/Soft Tissue X-Ray (Ext.) : Additional Comment I personally reviewed the x-ray, and it shows: No fracture of the hand, no dislocation, there was soft tissue swelling CT : Impression I personally reviewed the CT scan, and this shows no intracranial hemorrhage Medical Decision Making Additional Comment The patient presents with a reported fall and possible injuries including head injury. On exam she does have a scalp contusion, but head CT shows no acute fracture or hemorrhage. She has no neck pain, chest pain, or abdominal pain. She does have swelling to her left hand, without significant focal bony point tenderness or limitation with range of motion. X-ray shows no fracture or dislocation. Overall, the exact cause of her fall or other circumstances are unclear. I recommended further testing including blood work and a urine test, but the patient refused. We did contact her care facility, and it appears that APS is involved with her case. She will be discharged back to her facility, with return precautions. The exact cause of her fall or presentation is unclear. Unfortunately the patient refused further testing to rule out an underlying cause. Departure Time of Disposition: 12:11 Disposition: 01 HOME / SELF CARE / HOMELESS Impression: Primary Impression: Fall Additional Impressions: Left wrist sprain Head injury Condition: Stable Discharge Instructions: Fall Prevention in the Home, Adult, [id number], Wrist Sprain, Adult Referrals: NO PRIMARY CARE PROVIDER (PCP) Education Educated: Patient, Other Educated regarding: diagnosis, treatment, need for follow up Signature Scribe Signature: na Attestation: TRAVIS Albert MD Apr 11, 2025 10:30
--- NOTE | 2025-04-11 11:12 | RADIOLOGY REPORT ---
CLINICAL INDICATION: HAND PAIN, LEFT TECHNIQUE: 3 radiographic views of the left hand were obtained. Comparison: None FINDINGS/IMPRESSION: There is no evidence of acute fracture or dislocation. 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 Severe osteoarthrosis of the 2nd and 3rd dist al interphalangeal joint.
--- NOTE | 2025-04-11 11:19 | RADIOLOGY REPORT ---
EXAM: CT CT HEAD INDICATION: Fall TECHNIQUE: CT of the head without intravenous contrast. Coronal and sagittal reformatted images are s ubmitted. Radiation Dose : 1. Head: CT Dose: CTDI volume is 54.96 mGy. Dose-length product is 1006.3 mGy*cm The dose indicators for CT are the volume Computed Tomography (CT) Dose Index (CTDIvol) and the Dose Length Product (DLP), and are measured in units of mGy and mGy-cm, respectively. These indicators are not patient dose, but values generated from the CT scanner acquisition factors. The report includes radiation exposure data for exposures received during this examination. All CT scans at this medical facility are performed using dose modulation techniques as appropriate to a performed exam including the following: Automated exposure control was utilized; adjustment of the MA and/or KV according to patient size; and use of iterative reconstruction technique. COMPARISON: CT CT STROKE ALERT on DOS: 05/16/23 FINDINGS: There is no evidence of acute intracranial hemorrhage, extra-axial collection, mass effect, midline s hift, herniation or hydrocephalus. There are periventricular and subcortical hypodensities, nonspecific, but likely reflecting sequelae of chronic microvascular ischemic changes. The ventricles, sulci and cisterns are age appropriate. The richmond-white differentiation is intact. The visualized paranasal sinuses and mastoid air cells are clear. No depressed calvarial fracture. Right parietal scalp swelling. IMPRESSION: 1. No acute intracranial abnormality. 2. Right parietal scalp soft tissue swelling.
[2025-04-11 13:48] VITALS: BP 134/79; PULSE 82; RESP 16; TEMP 98.6; O2SAT 98
== END 2025-04-11 13:50 | disposition home or self-care (01) ==
LOC: ER 10:06
DX: S63.502A Unspecified sprain of left wrist, initial encounter (principal); S09.90XA Unspecified injury of head, initial encounter; I10 Essential (primary) hypertension; Z86.73 Personal history of transient ischemic attack (TIA), and cerebral infarction without residual deficits; W19.XXXA Unspecified fall, initial encounter; Y93.89 Activity, other specified; Y92.009 Unspecified place in unspecified non-institutional (private) residence as the place of occurrence of the external cause; Y99.8 Other external cause status
CPT/HCPCS: 70450; 73130; 99285